=== PATIENT | female | born 1925 | race Caucasian/White ===

== ENCOUNTER 2016-07-05 12:26 | Inpatient (IN) | payer MEDICARE ==
[2016-07-05 12:58] LABS: URINE BILIRUBIN NEGATIVE (NEGATIVE); URINE BLOOD TRACE (NEGATIVE); URINE GLUCOSE (UA) NEGATIVE (NEGATIVE); URINE LEUKOCYTE ESTERASE 1+ (NEGATIVE); URINE NITRITE NEGATIVE (NEGATIVE); URINE PROTEIN 1+ (NEGATIVE); URINE UROBILINOGEN NORMAL (0-1 mg/dl)
[2016-07-05 13:00] LABS: URINE APPEARANCE HAZY; URINE COLOR YELLOW
[2016-07-05 13:10] LABS: URINE WBC >100 /hpf
[2016-07-05 13:11] LABS: URINE AMORPHOUS SEDIMENT 3+; URINE BACTERIA 1+
[2016-07-05] MEDS ORDERED: SODIUM CHLORIDE 0.9% 1,000 ML ONE (13:22)
[2016-07-05 13:24] LABS: ABSOLUTE NEUTROPHIL COUNT 4.9 K/mm3 (1.8-7.7); BASO % 0.3 % (0.2-1.0); EOS % 0.2 % (0.9-2.9); HEMATOCRIT 36.3 % (37.0-47.0); HEMOGLOBIN 12.2 gm/l (12.0-16.0); IMM NEUT% 0.3 % (0-1); LYMPH # 0.5 (1.0-4.8); LYMPH % 8.4 % (15-45); MEAN CELL VOLUME 101.7 fl (81.0-99.0); MEAN CORPUSCULAR HEMOGLOBIN 34.2 pg (27.0-31.0); MEAN CORPUSCULAR HGB CONC 33.6 g/dl (33.0-37.0); MEAN PLATELET VOLUME 9.5 fl (7.4-10.4); MONO # 0.7 (0.0-0.8); NEUT % 79.8 % (43-75); PLATELET COUNT 337 K/mm3 (130-400); RED CELL DISTRIBUTION WIDTH 12.3 % (11.5-14.5)
[2016-07-05 13:29] LABS: VENOUS BLOOD GAS BASE EXCESS 3.6 mmol/L (-2.0-2.0); VENOUS BLOOD GAS HCO3 27.4 mmol/L (22.0-27.0)
[2016-07-05 13:31] LABS: ALBUMIN 3.7 gm/dL (3.5-5.7)
--- NOTE | 2016-07-05 13:31 | RAD ---
CHEST-AP BEDSIDE HISTORY: Cough. COMPARISONS: 06/25/2016. FINDINGS: A single view of the chest demonstrates a low inspiratory volume. The heart size is stable from the appearance on prior examination. There are multiple lower thoracic and upper lumbar compression deformities with subsequent vertebroplasty. Diffuse interstitial prominence is identified with suggested increased right upper lobe density. No effusion or pneumothorax is seen. The hilar and mediastinal structures are intact. IMPRESSION: 1. A low inspiratory volume. 2. Stable diffuse interstitial prominence with asymmetric increased right upper lobe density which may reflect a superimposed infiltrate. 3. Lower thoracic and upper lumbar compression deformities with subsequent vertebroplasty.
[2016-07-05] MEDS ORDERED: ALBUTEROL/IPRATROPIUM 2.5/0.5 MG 3 ML/EACH DOSE ONE (13:37)
[2016-07-05] MEDS ORDERED: CEFTRIAXONE 1 GRAM DUPLEX 50 ML IV ONE (14:16)
[2016-07-05] MEDS ORDERED: AZITHROMYCIN 500 MG VIAL ONE (14:36)
[2016-07-05] MEDS ORDERED: SODIUM CHLORIDE 0.9% 250 ML IV ONE (14:37)
[2016-07-05] MEDS ORDERED: SODIUM CHLORIDE 0.9% FLUSH 10 ML ONE (15:47)
[2016-07-05 16:24] VITALS: BMI 37.3
[2016-07-05] MEDS ORDERED: BISACODYL 5 MG TABLET.EC PO PRN (18:51)
[2016-07-05] MEDS ORDERED: BLISTEX LIPSTICK 1 EACH TP PRN (18:51)
[2016-07-05] MEDS ORDERED: BISACODYL 10 MG SUP PR PRN (18:51)
[2016-07-05] MEDS ORDERED: MAGNESIUM HYDROXIDE 30 ML UDCUP PO PRN (18:51)
[2016-07-05] MEDS ORDERED: MENTHOL/CETYLPYRD 1 EACH LOZENGE PO PRN (18:51)
[2016-07-05] MEDS ORDERED: SODIUM CHLORIDE 0.9% 100 ML IV PRN (18:51)
[2016-07-05] MEDS ORDERED: ALBUTEROL NEB 2.5 MG/3 ML VIAL.NEB NEB PRN (18:53)
[2016-07-05] MEDS ORDERED: ONDANSETRON 4 MG/2ML 2 ML VIAL IV PRN (18:53)
[2016-07-05] MEDS: ENOXAPARIN SODIUM 40 MG/0.4 ML SYRINGE SUB-Q SCH (19:24)
[2016-07-05] MEDS: SODIUM CHLORIDE 0.9% 1,000 ML IV SCH (19:31)
--- NOTE | 2016-07-05 19:33 | HP ---
KAROL VICENTE DATE OF ADMISSION: July 05, 2016 CHIEF COMPLAINT: Cough, weakness, and confusion. HISTORY OF PRESENT ILLNESS: Karol is an 89-year-old female who is remarkably healthy. She presented to the emergency room today with about a one to two week history of upper respiratory infection type symptoms. She was actually treated with a Z-pack just before . Her symptoms seem to have been hanging on over the last two weeks and in the last day or so they have gotten markedly worse. She has had increasing cough, increasing wheezing. She has been profoundly weak and has had some episodes of confusion today as well. She lives at [facility]. Given the above, she was brought to the emergency room for evaluation. In the emergency room, she was worked up and found to have evidence of right upper lobe pneumonia as well as influenza A and a possible urinary tract infection. She was also found to be profoundly dehydrated. It was elected to admit her to the hospitalist service for further treatment. REVIEW OF SYSTEMS: As noted above, otherwise negative. PAST MEDICAL HISTORY: 1. Hypothyroidism. 2. History of thoracic compression fractures. 3. Osteoporosis. 4. Hypertension. 5. Anxiety. PAST SURGICAL HISTORY: Kyphoplasty time two. ALLERGIES: SULFA. CURRENT MEDICATIONS: 1. Bisacodyl as needed. 2. Tylenol as needed. 3. Vitamin D 2000 international units orally daily. 4. Levothyroxine 75 mcg orally in the morning. 5. Lactulose 15 mL orally daily. 6. Hydrochlorothiazide 12.5 mg orally daily. 7. Neurontin 100 mg orally at bedtime. 8. Senna one tablet orally twice daily. 9. Multivitamin one orally daily. SOCIAL HISTORY: She lives at [facility]. She is . She has a daughter who lives in [place]. No alcohol, tobacco or drug use. FAMILY HISTORY: She has a brother who recently but she is not sure from what. No other significant family history. IMMUNIZATIONS: Patient states she got a flu shot this year at the [facility] though it is not documented in her clinic chart. PHYSICAL EXAMINATION: VITAL SIGNS: Temperature 98.7, pulse is 98, blood pressure 149/86, respirations 18, O2 saturation 94% on room air. GENERAL: This is a well-developed, well-nourished elderly female. She is alert, calm, pleasant. She is sleeping when I entered the room but awakens easily and answers questions appropriately. She does have some slight confusion but is oriented times three. HEENT: Normocephalic, atraumatic. Tympanic membranes are clear. Extraocular movements intact. Oropharynx is slightly dry but no lesions. NECK: Is supple with no bruits. No jugular venous distention. LUNGS: She has diffuse crackles in all park bilaterally. HEART: Regular rhythm. ABDOMEN: Is soft, nontender, nondistended with no rebound or guarding. EXTREMITIES: With no edema. SKIN: Clear with no rashes. LABORATORIES: CBC with a white count of 6.2, hemoglobin of 12.2, hematocrit 36.3, platelets of 337. Chemistry panel, sodium 135, potassium 4.1, chloride 96, carbon dioxide 29, BUN of 17, creatinine 0.9, glucose of 144. Venous blood gas with a pH of 7.470. Influenza A and B swabs are positive for influenza A and negative for influenza B. Urinalysis with 1+ protein, negative nitrites, 1+ leukocyte esterase, 1+ bacteria. IMAGING: Chest x-ray shows diffuse interstitial infiltrates with increased infiltrate in the right upper lobe. ASSESSMENT: 1. Influenza A. 2. Community acquired pneumonia. 3. Urinary tract infection. 4. Dehydration secondary to the above. 5. Metabolic encephalopathy manifested by mild confusion secondary to the above. PLAN: 1. She is admitted to the floor. 2. We will go ahead and treat her with Rocephin and azithromycin as well as Tamiflu. 3. We will also treat her with supportive care with gentle IV fluid rehydration, nebulizers, medications for pain and fever as needed. 4. Lovenox for deep venous thrombosis prophylaxis. 5. We will continue with her regular medications otherwise with the exception of any sedative type medications given her mild confusion. I expect this will clear rapidly. 6. Physical therapy and occupational therapy will evaluate her in the morning. 7. Further care as dictated by her clinical course. Cc: Jluis Arita M.D.
[2016-07-05] MEDS: OSELTAMIVIR PHOSPHATE 30 MG/5 ML SYRINGE PO SCH (21:00)
[2016-07-05] MEDS ORDERED: Oseltamivir Phosphate 75 MG CAP PO SCH (21:00)
[2016-07-05] MEDS: DOCUSATE SODIUM 100 MG CAPSULE PO SCH (21:00)
[2016-07-05] MEDS: ACETAMINOPHEN 325 MG TABLET PO PRN (22:32)
[2016-07-06] MEDS: SODIUM CHLORIDE 0.9% 1,000 ML IV SCH (03:47)
[2016-07-06] MEDS: ACETAMINOPHEN 325 MG TABLET PO PRN ×2 (05:02→15:05)
[2016-07-06 07:03] LABS: HEMATOCRIT 31.5 % (37.0-47.0); HEMOGLOBIN 10.7 gm/l (12.0-16.0); MEAN CELL VOLUME 100.6 fl (81.0-99.0); MEAN CORPUSCULAR HEMOGLOBIN 34.2 pg (27.0-31.0); RED CELL DISTRIBUTION WIDTH 12.4 % (11.5-14.5)
[2016-07-06] MEDS: OSELTAMIVIR PHOSPHATE 30 MG/5 ML SYRINGE PO SCH ×2 (07:33→20:40)
[2016-07-06] MEDS: DOCUSATE SODIUM 100 MG CAPSULE PO SCH ×3 (07:33→20:39)
[2016-07-06] MEDS: LEVOTHYROXINE SODIUM 75 MCG TABLET PO SCH (07:33)
[2016-07-06 07:40] LABS: CALCIUM 7.9 mg/dL (8.6-10.3)
--- NOTE | 2016-07-06 11:22 | PDOC43 ---
- Subjective Chief Complaint: Cough, weakness, confusion feeling better this AM. Still not to baseline MS as per dtr. Subjective: Reports Tolerating Diet Well, Denies Shortness of Breath, Denies Cough, Denies Chest Pain, Denies Abdominal Pain, Denies Nausea, Denies Vomiting , Denies Fever, Denies Chills - Objective Vital Signs Temperature 98.6 F 07/06/16 08:09 Pulse Rate 82 07/06/16 08:09 Respiratory Rate 20 07/06/16 08:09 Blood Pressure 127/73 07/06/16 08:09 O2 Saturation by Pulse Oximetry 94 07/06/16 08:09 Oxygen Delivery Method Room Air Oxygen Flow Rate 0 Intake and Output 07/05/16 07/06/16 07/07/16 06:59 06:59 06:59 Intake Total 1321 Output Total 739 Balance 582 General: Alert, Oriented x3, Cooperative, No Acute Distress HEENT: Atraumatic Lungs: Clear to Auscultation Bilaterally Cardiovascular: Regular Rate and Rhythm Abdomen: Soft, Normal Bowel Sounds, Non-Distended, No Tenderness Extremities: Normal Pulses, No Edema Laboratory 07/06/16 06:30 07/06/16 06:30 Current Medications: Current meds reviewed in EMR. - Problems: Assessment/Plan (1) Influenza A Status: Acute Assessment/Plan: Stable. Con't tamiflu and supportive care. (2) CAP (community acquired pneumonia) Status: Acute Assessment/Plan: POA, presumed bacterial superimposed in Influenza. Doing well. Con't Rocephin/ Azithro and supportive care. Cx pending. (3) UTI (urinary tract infection) Qualifiers: Urinary tract infection type: acute cystitis Status: Acute Assessment/Plan: Admit UA borderline. On rocephin for CAP- con't and await cx results. (4) Dehydration Status: Acute Assessment/Plan: Etiology above. Resolved this am. (5) Metabolic encephalopathy Status: Acute Assessment/Plan: Etiology above. Appears much improved this AM though dtr thinks still not baseline. PT/OT to see and eval. Dtr indicated pt needs higher level of care though there is no hx of difficulty until this illness over the last couple weeks. Supportive care and follow closely. Con't to hold usual neurontin. (6) Hypothyroidism Status: Chronic Assessment/Plan: Stable. Con't usual regimen. (7) HTN (hypertension) Qualifiers: Hypertension type: essential hypertension Qualifier Code: (I10) Essential (primary) hypertension Status: Chronic Assessment/Plan: Stable. Con't usual regimen.
[2016-07-06] MEDS ORDERED: CEFTRIAXONE 1 GRAM DUPLEX 0 ML IV ONE (14:11)
[2016-07-06] MEDS: CEFTRIAXONE 1 GRAM DUPLEX 1 G in Premix (D5W) 50 ml 1 EACH IV SCH (14:16)
[2016-07-06] MEDS: AZITHROMYCIN 500 MG in SODIUM CHLORIDE 0.9% 250 ML IV SCH ×3 (15:05)
[2016-07-06] MEDS ORDERED: TRAMADOL HCL 50 MG TABLET ONE (18:25)
[2016-07-06] MEDS: TRAMADOL HCL 50 MG TABLET PO SCH ×2 (18:28→22:54)
[2016-07-06] MEDS: ENOXAPARIN SODIUM 40 MG/0.4 ML SYRINGE SUB-Q SCH (20:40)
[2016-07-07 07:22] LABS: CALCIUM 8.2 mg/dL (8.6-10.3)
[2016-07-07] MEDS: OSELTAMIVIR PHOSPHATE 30 MG/5 ML SYRINGE PO SCH ×2 (08:10→20:58)
[2016-07-07] MEDS: LEVOTHYROXINE SODIUM 75 MCG TABLET PO SCH (08:11)
[2016-07-07] MEDS: DOCUSATE SODIUM 100 MG CAPSULE PO SCH ×2 (08:11→20:58)
[2016-07-07] MEDS: TRAMADOL HCL 50 MG TABLET PO SCH ×3 (08:11→20:58)
[2016-07-07] MEDS: ACETAMINOPHEN 325 MG TABLET PO PRN (13:23)
[2016-07-07] MEDS: CEFTRIAXONE 1 GRAM DUPLEX 1 G in Premix (D5W) 50 ml 1 EACH IV SCH (14:27)
[2016-07-07] MEDS: AZITHROMYCIN 500 MG in SODIUM CHLORIDE 0.9% 250 ML IV SCH ×3 (15:21)
--- NOTE | 2016-07-07 18:31 | PDOC43 ---
- Subjective Chief Complaint: Cough, weakness, confusion Feeling good today. Subjective: Reports Tolerating Diet Well, Reports Adequate Oral Intake, Denies Shortness of Breath, Denies Cough, Denies Chest Pain, Denies Abdominal Pain, Denies Nausea, Denies Vomiting, Denies Fever, Denies Chills - Objective Vital Signs Temperature 97.9 F 07/07/16 14:00 Pulse Rate 73 07/07/16 14:00 Respiratory Rate 14 07/07/16 14:00 Blood Pressure 121/66 07/07/16 14:00 O2 Saturation by Pulse Oximetry 93 07/07/16 14:00 Oxygen Delivery Method Room Air Oxygen Flow Rate 0 Intake and Output 07/06/16 07/07/16 07/08/16 06:59 06:59 06:59 Intake Total 1321 1776 727 Output Total 739 652 300 Balance 582 1124 427 General: Alert, Oriented x3, Cooperative, No Acute Distress HEENT: Atraumatic Lungs: Clear to Auscultation Bilaterally Cardiovascular: Regular Rate and Rhythm Abdomen: Soft, Normal Bowel Sounds, Non-Distended, No Tenderness Extremities: Normal Pulses, No Edema Laboratory 07/07/16 06:30 Current Medications: Current meds reviewed in EMR. - Problems: Assessment/Plan (1) Influenza A Status: Acute Assessment/Plan: Stable. Con't tamiflu and supportive care. (2) CAP (community acquired pneumonia) Status: Acute Assessment/Plan: POA, presumed bacterial superimposed in Influenza. Doing well. Con't Rocephin/ Azithro and supportive care. (3) UTI (urinary tract infection) Qualifiers: Urinary tract infection type: acute cystitis Status: Acute Assessment/Plan: Admit UA borderline but cx negative- no UTI. (4) Dehydration Status: Acute Assessment/Plan: Etiology above. Resolved. (5) Metabolic encephalopathy Status: Acute Assessment/Plan: Resolved. (6) Hypothyroidism Status: Chronic Assessment/Plan: Stable. Con't usual regimen. (7) HTN (hypertension) Qualifiers: Hypertension type: essential hypertension Qualifier Code: (I10) Essential (primary) hypertension Status: Chronic Assessment/Plan: Stable. Con't usual regimen.
[2016-07-07] MEDS: ENOXAPARIN SODIUM 40 MG/0.4 ML SYRINGE SUB-Q SCH (19:00)
[2016-07-08 07:33] VITALS: BP 150/77
[2016-07-08] MEDS: LEVOTHYROXINE SODIUM 75 MCG TABLET PO SCH (08:27)
[2016-07-08] MEDS: OSELTAMIVIR PHOSPHATE 30 MG/5 ML SYRINGE PO SCH (09:27)
[2016-07-08] MEDS: TRAMADOL HCL 50 MG TABLET PO SCH (09:27)
[2016-07-08] MEDS: DOCUSATE SODIUM 100 MG CAPSULE PO SCH (09:27)
[2016-07-08] MEDS: CEFTRIAXONE 1 GRAM DUPLEX 1 G in Premix (D5W) 50 ml 1 EACH IV SCH (10:22)
--- NOTE | 2016-07-08 10:54 | DS ---
Karol Deutsch ADMIT DATE: 07/05/2016 DISCHARGE DATE: 07/08/2016 ADMISSION DIAGNOSES: 1. Influenza A. 2. Community acquired pneumonia superimposed on above. 3. Concern for possible urinary tract infection with a borderline urinalysis upon admission. 4. Dehydration secondary to above. 5. Mild metabolic encephalopathy secondary to above manifested by mild confusion. DISCHARGE DIAGNOSES: 1. Influenza A. 2. Community acquired pneumonia superimposed on above. 3. Concern for possible urinary tract infection with a borderline urinalysis upon admission. 4. Dehydration secondary to above. 5. Mild metabolic encephalopathy secondary to above manifested by mild confusion. 6. No evidence of urinary tract infection as all cultures were negative and resolution of dehydration and metabolic encephalopathy at time of discharge. ADMIT HISTORY AND PHYSICAL: Please see my dictated note for details. Briefly, Ms. Deutsch is an 89-year-old female. She presented with about a 1 to 2 week history of gradual worsening upper respiratory infection symptoms. She was treated with a Z-Isacc as an outpatient prior to [place]. Symptoms did not really seem to go away and then 1 or 2 days prior to this admission they actually got significantly worse. She was brought to the emergency room and worked up and found to have evidence of right upper lobe pneumonia as well as influenza A. She also had a borderline urinalysis and there was a concern she may have a urinary tract infection as well. She was dehydrated and had some intermittent confusion that was felt to be a mild metabolic encephalopathy secondary to above. She was admitted to the hospitalist service for further treatment. HOSPITAL COURSE: She was admitted and started on Rocephin and azithromycin as well as Tamiflu and supportive care. All of her cultures remained negative. She actually returned to her baseline fairly rapidly within the first 48 hours of admission. By day of discharge she was doing well. She had been afebrile and minimally symptomatic for greater than 48 hours. Her urine culture ended up not growing any pathogens and it was felt she did not have a urinary tract infection at admission. We elected to discharge her home back to [facility] with plans for home health intervention as well. DISCHARGE MEDICATIONS: 1. Cefuroxime 500 mg by mouth twice daily x5 more days. 2. Nystatin swish and swallow 5 mL by mouth four times daily x5 more days (for superficial thrush). 3. Tamiflu renal dose 30 mg by mouth every 12 hours x2 more days. All other medications as prior to admit as follows: 1. Tylenol 325 to 650 as needed. 2. Bisacodyl rectal as needed. 3. Neurontin 100 mg by mouth at bedtime. 4. Hydrochlorothiazide 12.5 mg by mouth daily. 5. Levothyroxine 75 mcg by mouth every morning. 6. Multivitamin 1 by mouth daily. 7. Vitamin D 2000 units by mouth daily. DISCHARGE FOLLOW UP: Will be with Dr. Arita in the next 1 to 2 weeks for a recheck and sooner as needed. JOB: [id number] E/trr CC: Dr. Arita
== END 2016-07-08 12:55 | DRG 193 ==
LOC: ED 12:26 → MS 15:17
PROVIDERS: ADMIT Family Medicine; ATTEND Family Medicine
DX: J09.X2 Influenza due to identified novel influenza A virus with other respiratory manifestations (principal); G93.40 Encephalopathy, unspecified; J18.9 Pneumonia, unspecified organism; E03.9 Hypothyroidism, unspecified; Z87.311 Personal history of (healed) other pathological fracture; E86.0 Dehydration; I10 Essential (primary) hypertension; F41.9 Anxiety disorder, unspecified